=== PATIENT | female | born 1960 | race Caucasian/White ===

== ENCOUNTER 2016-10-26 09:31 | Emergency (ER) | payer MEDICAID ==
[~2016-10-26] VITALS: Ht 144.8 cm; Wt 78.0 kg
[2016-10-26] MEDS ORDERED: ALBU18HF2 IH (09:40)
[2016-10-26] MEDS ORDERED: OMEP20CA10 PO (09:40)
[2016-10-26] MEDS ORDERED: CLAR10 PO (09:40)
[2016-10-26] MEDS ORDERED: MOME13HF2 IH (09:40)
[2016-10-26] MEDS ORDERED: SODIUM CHLORIDE 0.9% 500 ML IV ONE (10:13)
[2016-10-26] MEDS ORDERED: FAMOTIDINE 20MG/2ML VIAL IV ONE (10:15)
[2016-10-26] MEDS ORDERED: ONDANSETRON HCL 4MG/2ML VIAL IV ONE (10:15)
[2016-10-26 11:00] LABS: BASOPHILS % 1.2 % (0.0-2.0); EOSINOPHILS % 3.1 % (0.0-5.0); HEMATOCRIT. 36.7 % (36.0-48.0); LYMPHOCYTES % 40.2 % (20.0-50.0); MEAN CORPUSCULAR VOLUME 82.5 fL (81.0-99.0); MEAN PLATELET VOLUME 9.5 fl (7.4-10.4); MONOCYTES % 6.4 % (2.0-8.0); NEUTROPHILS % 49.1 % (40.0-76.0); PLATELET 223 x1000/uL (130-400); RED BLOOD CELL COUNT 4.45 mill/uL (4.2-5.4); RED CELL DISTRIBUTION WIDTH 14.7 % (11.6-14.6)
[2016-10-26 11:02] LABS: CHLORIDE 111 mEq/L (98-107)
[2016-10-26 11:09] LABS: CARBON DIOXIDE 26 mEq/L (21-32)
[2016-10-26 11:13] LABS: TROPONIN I < 0.02 ng/mL (0.00-0.04)
[2016-10-26 13:05] LABS: CLARITY URINE CLEAR (CLEAR); COLOR URINE YELLOW (YELLOW); GLUCOSE URINE NEGATIVE (NEGATIVE); KETONES URINE NEGATIVE (NEGATIVE); LEUKOCYTE ESTERASE URINE 1+ (NEGATIVE); NITRITE URINE NEGATIVE (NEGATIVE); OCCULT BLOOD URINE NEGATIVE (NEGATIVE); PROTEIN URINE NEGATIVE (NEGATIVE); SPECIFIC GRAVITY URINE 1.016 (1.005-1.030); UROBILINOGEN URINE 0.2 E.U./dL (0.2-1.0)
[2016-10-26 13:50] VITALS: BP 124/66
== END 2016-10-26 14:30 | disposition home or self-care (01) ==
LOC: ER 10:19
DX: N39.0 Urinary tract infection, site not specified (principal); K80.20 Calculus of gallbladder without cholecystitis without obstruction; R53.1 Weakness; J45.909 Unspecified asthma, uncomplicated
CPT/HCPCS: 36415; 70450; 71010; 76705; 80053; 81001; 83605; 83690; 84484; 85025; 93005; 96361; 96374; 96375; 99285; J2405; J3490; J7040; Z7610

== ENCOUNTER 2018-05-08 04:35 | Emergency (ER) | payer MEDICAID ==
[~2018-05-08] VITALS: Ht 144.8 cm; Wt 78.0 kg
[~2018-05-08 04:35] MED LIST: ALBU18HF2 IH; CLAR10 PO; MOME13HF2 IH; OMEP20CA10 PO
[2018-05-08] MEDS ORDERED: IPRATROPIUM BROMIDE (0.02%) 0.5MG/2.5ML NEB HHN STA (06:01)
[2018-05-08] MEDS ORDERED: METHYLPREDNISOLONE SOD SUCC 125 MG/2 ML VIAL IV STA (06:01)
[2018-05-08] MEDS ORDERED: ALBUTEROL (0.083%) 2.5MG/3ML NEB HHN STA (06:01)
[2018-05-08] MEDS ORDERED: SODIUM CHLORIDE 0.9% 1,000 ML IV ONE (06:01)
[2018-05-08] MEDS ORDERED: MAGNESIUM 2 G PREMIX 50 ML IV STA (06:01)
[2018-05-08] MEDS ORDERED: PREDNISONE 20MG TABLET PO ONE (07:15)
[2018-05-08 08:11] VITALS: BP 131/73
== END 2018-05-08 08:13 | disposition home or self-care (01) ==
LOC: ER 04:35
DX: J45.901 Unspecified asthma with (acute) exacerbation (principal); J20.9 Acute bronchitis, unspecified; R03.0 Elevated blood-pressure reading, without diagnosis of hypertension; K21.9 Gastro-esophageal reflux disease without esophagitis; Z90.49 Acquired absence of other specified parts of digestive tract
CPT/HCPCS: 71045; 94640; 96365; 96375; 99283; J2930; J3475; J7030; J7611; Z7610

== ENCOUNTER 2019-03-26 17:04 | Emergency (ER) | payer MEDICAID ==
[~2019-03-26] VITALS: Ht 165.1 cm; Wt 90.0 kg
[~2019-03-26 17:04] MED LIST changes: -OMEP20CA10 PO; +OMEP20CA14 PO
[2019-03-26] MEDS ORDERED: IBUPROFEN 600MG TABLET PO ONE (20:15)
[2019-03-26 22:03] VITALS: BP 149/81
== END 2019-03-26 22:16 | disposition home or self-care (01) ==
LOC: ER 17:04
DX: J06.9 Acute upper respiratory infection, unspecified (principal); J45.909 Unspecified asthma, uncomplicated; K21.9 Gastro-esophageal reflux disease without esophagitis; Z90.49 Acquired absence of other specified parts of digestive tract; Z79.899 Other long term (current) drug therapy
CPT/HCPCS: 87804; 99283